=== PATIENT | male | born 1960 | race Caucasian/White ===

== ENCOUNTER → 2020-01-29 | Outpatient (CLI) | payer BC ==
[2020-01-29 15:37] LABS: FREE T3 3.04 pg/mL (2.77-5.27); FREE T4 (FREE THYROXINE) 1.06 ng/dL (0.78-2.19)
[2020-01-29 15:51] LABS: THYROID STIMULATING HORMONE 5.44 uIU/mL (0.47-4.68)
== END ==
LOC: OD 14:28
PROVIDERS: ATTEND Specialist
DX: E03.9 Hypothyroidism, unspecified (principal); R00.1 Bradycardia, unspecified; R01.1 Cardiac murmur, unspecified; Z13.6 Encounter for screening for cardiovascular disorders; Z79.899 Other long term (current) drug therapy
CPT/HCPCS: 36415; 84439; 84443; 84481